=== PATIENT | female | born 1955 | race Caucasian/White ===

== ENCOUNTER 2017-09-28 20:13 | Emergency (ER) | payer OTHER ==
[2017-09-28] MEDS: ONDANSETRON 4 MG INJ IV (21:57)
[2017-09-28] MEDS: morphine 4 MG/ML VIAL IV (21:58)
[2017-09-28] MEDS: SOD CHLORIDE 0.9% 500 ML IV (21:59)
[2017-09-28 22:09] LABS: ADD MAN DIFF? NO
[2017-09-28 22:10] LABS: BASOPHIL # 0.1 10^3/ul (0.0-0.1); BASOPHILS % 0.6 % (0.0-2.0); EOSINOPHILS # 0.2 10^3/ul (0.0-0.5); EOSINOPHILS % 2.4 % (0.0-7.0); HEMATOCRIT 46.9 % (37.0-47.0); HEMOGLOBIN 17.4 g/dl (12.0-16.0); IMMATURE GRANS #M 0.03 10^3/ul; IMMATURE GRANS % (M) 0.3 %; LYMPHOCYTES % 42.1 % (15.0-51.0); MEAN CORPUSCULAR HEMOGLOBIN 35.4 pg (29.0-33.0); MEAN CORPUSCULAR HGB CONC 37.1 g/dl (32.0-37.0); MEAN CORPUSCULAR VOLUME 95.3 fl (82.0-101.0); MEAN PLATELET VOLUME 9.2 fl (7.4-10.4); MONOCYTE # 0.5 10^3/ul (0.3-0.9); MONOCYTES % 5.6 % (0.0-11.0); NEUTROPHIL # 4.7 10^3/ul (1.6-7.5); PLATELET COUNT 272 10^3/UL (140-415); RED BLOOD COUNT 4.92 10^6/ul (4.20-5.40); RED CELL DISTRIBUTION WIDTH 13.1 % (11.5-14.5)
[2017-09-28 22:10] LABS: WHITE BLOOD COUNT 9.5 10^3/ul (4.8-10.8)
[2017-09-28 22:30] LABS: LACTIC ACID 1.6 mmol/L (0.5-2.0)
[2017-09-28 22:32] LABS: ALANINE AMINOTRANSFERASE 30 IU/L (13-69); ALBUMIN 4.4 g/dl (3.3-4.9); ALBUMIN/GLOBULIN RATIO 0.97; ALKALINE PHOSPHATASE 183 IU/L (42-121); ANION GAP 14 (8-16); ASPARTATE AMINO TRANSFERASE 51 IU/L (15-46); BILIRUBIN,INDIRECT 0.2 mg/dl (0-1.1); BILIRUBIN,TOTAL 0.2 mg/dl (0.2-1.3); BLOOD UREA NITROGEN 11 mg/dl (7-20); CALCIUM 9.5 mg/dl (8.4-10.2); CARBON DIOXIDE 26 mmol/L (21-31); CHLORIDE 105 mmol/L (97-110); CREATININE 0.54 mg/dl (0.44-1.00); GLUCOSE 87 mg/dl (70-220); LIPASE 68 U/L (23-300); POTASSIUM 3.6 mmol/L (3.5-5.1); SODIUM 141 mmol/L (135-144); TOTAL PROTEIN 8.9 g/dl (6.1-8.1)
[2017-09-28 22:36] LABS: INR 0.79; PARTIAL THROMBOPLASTIN TIME 32.6 Sec (25.0-35.0); PT RATIO 0.9
[2017-09-28 22:43] LABS: TROPONIN-I 0.013 ng/ml (0.000-0.120)
[2017-09-28 22:51] LABS: ADD UMIC YES; UR ASCORBIC ACID NEGATIVE (NEGATIVE); UR BILIRUBIN (Dip) NEGATIVE (NEGATIVE); UR BLOOD (Dip) 2+ mg/dL (NEGATIVE); UR CLARITY CLEAR (CLEAR); UR COLOR COLORLESS (YELLOW); UR GLUCOSE (Dip) NEGATIVE (NEGATIVE); UR KETONES (Dip) NEGATIVE (NEGATIVE); UR LEUKOCYTE ESTERASE (Dip) NEGATIVE Leu/ul (NEGATIVE); UR NITRITE (Dip) NEGATIVE (NEGATIVE); UR RBC 0 /HPF (0-5); UR SPECIFIC GRAVITY (Dip) 1.004 (1.003-1.030); UR SQUAMOUS EPITHELIAL CELL FEW /HPF (FEW); UR TOTAL PROTEIN (Dip) 1+ mg/dl (NEGATIVE); UR UROBILINOGEN (Dip) NEGATIVE (NEGATIVE); UR WBC 1 /HPF (0-5)
== END 2017-09-29 00:26 | disposition home or self-care (01) ==
LOC: E/R 09-29 00:26
DX: R10.31 Right lower quadrant pain (principal); R40.2362 Coma scale, best motor response, obeys commands, at arrival to emergency department; I10 Essential (primary) hypertension; E03.9 Hypothyroidism, unspecified; R40.2142 Coma scale, eyes open, spontaneous, at arrival to emergency department; R40.2252 Coma scale, best verbal response, oriented, at arrival to emergency department
CPT/HCPCS: 36415; 74176; 80053; 81001; 83605; 83690; 84484; 85025; 85610; 85730; 87040; 87086; 93005; 96374; 96375; 99285-25